=== PATIENT | female | born 1980 | race Caucasian/White ===

== ENCOUNTER 2017-11-27 11:24 | Emergency (ER) | payer OTHER, SELFPAY ==
[~2017-11-27] VITALS: Ht 149.9 cm; Wt 75.0 kg
[~2017-11-27 11:24] MED LIST: BENA25CA2 PO; LABE10TAB PO; MULTCHW14 PO; PERC5TAB12 PO; PROT1TAB2 PO; PROTPAK PO; REGL10TA6 PO; VITA10002 PO; ZITHTAB PO; ZOFR8TAB PO
[2017-11-27 11:34] VITALS: BP 129/80
[2017-11-27] MEDS ORDERED: SUCR1TA PO (11:43)
[2017-11-27] MEDS ORDERED: LAMI1TAB9 PO (11:43)
[2017-11-27] MEDS ORDERED: ADDE10CA3 PO (11:43)
[2017-11-27] MEDS ORDERED: LEVE750T5 PO (11:43)
[2017-11-27] MEDS ORDERED: CARA1TAB6 PO (16:23)
== END 2017-11-27 13:14 | disposition left against medical advice (07) ==
LOC: M ED 11:24
DX: Z53.21 Procedure and treatment not carried out due to patient leaving prior to being seen by health care provider (principal)

== ENCOUNTER 2017-11-27 13:53 | Emergency (ER) | payer OTHER | END 2017-11-27 16:37 | disposition home or self-care (01) | LOC: M ED 13:53 | DX: Z76.0 Encounter for issue of repeat prescription (principal); K29.70 Gastritis, unspecified, without bleeding; F33.9 Major depressive disorder, recurrent, unspecified; G89.29 Other chronic pain; M54.2 Cervicalgia; Z98.84 Bariatric surgery status; Z79.899 Other long term (current) drug therapy; Z88.0 Allergy status to penicillin; Z88.1 Allergy status to other antibiotic agents; Z88.5 Allergy status to narcotic agent; Z88.8 Allergy status to other drugs, medicaments and biological substances; Z91.041 Radiographic dye allergy status; Z91.048 Other nonmedicinal substance allergy status | CPT/HCPCS: 99283 ==